=== PATIENT | male | born 1980 | race American Indian/Alaskan Native ===

== ENCOUNTER 2020-06-24 07:40 | Emergency (ER) | payer SELFPAY ==
[2020-06-24 08:34] VITALS: BP 125/77
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
== END 2020-06-24 09:07 | disposition home or self-care (01) ==
LOC: ED 07:40
DX: S16.1XXA Strain of muscle, fascia and tendon at neck level, initial encounter (principal); S53.401A Unspecified sprain of right elbow, initial encounter; S63.501A Unspecified sprain of right wrist, initial encounter; Z79.899 Other long term (current) drug therapy; V49.49XA Driver injured in collision with other motor vehicles in traffic accident, initial encounter; Y92.410 Unspecified street and highway as the place of occurrence of the external cause; Y93.89 Activity, other specified; Y99.8 Other external cause status
CPT/HCPCS: 99282